=== PATIENT | female | born 1975 | race African-American/Black ===

== ENCOUNTER 2019-07-12 11:11 | Emergency (ER) | payer BC | END 2019-07-12 11:46 | disposition home or self-care (01) | LOC: ERS 11:11 | DX: J11.1 Influenza due to unidentified influenza virus with other respiratory manifestations (principal) | CPT/HCPCS: 99281 ==

== ENCOUNTER 2021-07-08 17:35 | Emergency (ER) | payer BC, SELFPAY ==
[2021-07-09 11:57] LABS: SARS-CoV-2 PCR by NAA DETECTED (NotDetected)
== END 2021-07-08 19:12 | disposition home or self-care (01) ==
LOC: ERS 17:35
DX: U07.1 COVID-19 (principal)
CPT/HCPCS: 99283; U0003; U0005

== ENCOUNTER 2022-08-04 16:04 | Emergency (ER) | payer SELFPAY | END 2022-08-04 17:13 | disposition home or self-care (01) | LOC: ERS 16:04 | DX: M25.561 Pain in right knee (principal); I10 Essential (primary) hypertension ==